=== PATIENT | male | born 1990 | race Two or more races ===

== ENCOUNTER 2025-04-06 17:02 | Emergency (ER) | payer BC, OTHER ==
[~2025-04-06] VITALS: Ht 170.2 cm; Wt 69.3 kg
[2025-04-06 17:06] VITALS: BP 134/90; PULSE 62; RESP 19; TEMP 98.2; O2SAT 99
--- NOTE | 2025-04-06 18:09 | DVH ---
CT HEAD WITHOUT CONTRAST Indication: [facility] EXAM DATE: 04/06/2025 05:42 PM COMPARISON: None TECHNIQUE: CT of the head without intravenous contrast. RADIATION DOSE: CTDIvol: 54 mGy, DLP: 972 mGy*cm FINDINGS: There is no intracranial hemorrhage. There is no extra-axial fluid, mass, mass effect or midline shift. The ventricles are midline and normal in size. Basilar cisterns are patent. Joshua-white differentiation is maintained. The paranasal sinuses and mastoids are well-pneumatized. Imaged portion of the orbits are unremarkable. IMPRESSION: No intracranial hemorrhage or mass effect.
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
[2025-04-06] MEDS ORDERED: CYCL-614 PO (19:35)
[2025-04-06] MEDS ORDERED: IBUP-1456 PO (19:35)
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
[2025-04-06] MEDS: ONDANSETRON ODT 4 MG TAB PO ONE (19:50)
[2025-04-06] MEDS: HYDROcodone-ACET 5/325MG TAB PO ONE (19:50)
== END 2025-04-06 19:56 | disposition home or self-care (01) ==
LOC: ER 17:02
DX: S16.1XXA Strain of muscle, fascia and tendon at neck level, initial encounter (principal); S39.012A Strain of muscle, fascia and tendon of lower back, initial encounter; R51.9 Headache, unspecified; V43.52XA Car driver injured in collision with other type car in traffic accident, initial encounter; Y93.89 Activity, other specified; Y92.410 Unspecified street and highway as the place of occurrence of the external cause; Y99.8 Other external cause status
CPT/HCPCS: 70450; 72040; 72100; 99284; Q0162

== ENCOUNTER 2025-04-19 12:54 | Emergency (ER) | payer BC ==
[~2025-04-19] VITALS: Ht 170.2 cm; Wt 69.9 kg
[~2025-04-19 12:54] MED LIST: CYCL-614 PO; IBUP-1456 PO
[2025-04-19 15:03] LABS: Urine Protein, UAD Negative (Negative)
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
[2025-04-19 15:58] VITALS: BP 126/64; PULSE 78; RESP 16; TEMP 98.7; O2SAT 97
[2025-04-22 06:06] LABS: Chlamydia Trachomatis, NAA Negative (Negative); Neisseria gonorrhoeae, NAA Negative (Negative)
== END 2025-04-19 15:59 | disposition home or self-care (01) ==
LOC: ER 12:54
DX: S39.011A Strain of muscle, fascia and tendon of abdomen, initial encounter (principal); N50.819 Testicular pain, unspecified; V49.88XA Car occupant (driver) (passenger) injured in other specified transport accidents, initial encounter; Y93.I9 Activity, other involving external motion; Y92.488 Other paved roadways as the place of occurrence of the external cause; Y99.8 Other external cause status
CPT/HCPCS: 81001